=== PATIENT | male | born 1965 | race Caucasian/White ===

== ENCOUNTER 2023-05-06 00:24 | Emergency (ER) | payer BC ==
[2023-05-06 00:56] LABS: #Basophils 0.1 thou/uL (0.0-0.2); #Eosinphils 0.1 thou/uL (0.0-0.7); #Monocytes 0.8 thou/uL (0.11-0.59); #Neutrophils 4.1 thou/uL (1.40-6.50); %Basophils 0.8 % (0.0-1.0); %Eosinophils 1.9 % (0.0-10.0); %Lymphocytes 29.4 % (21.0-51.0); %Monocytes 10.4 % (0.0-10.0); %Neutrophils 57.2 % (42.0-75.0); Hematocrit 41.6 % (42.0-52.0); Hemoglobin 14.2 g/dL (14.0-18.0); Mean Corpuscular HGB CONC 34.1 g/dL (32.0-36.0); Mean Corpuscular Hemoglobin 30.9 pg (27.0-31.0); Mean Corpuscular Volume 90.4 fl (78.0-98.0); Mean Platelet Volume 9.1 fL (7.4-10.4); Platelet Count 220 10x3/uL (130-400); RBC Distribution Width 13.2 % (11.5-14.5); White Blood Cell (WBC) Count 7.2 10x3/uL (4.8-10.8)
[2023-05-06 01:19] LABS: ALT (SGPT) 20 U/L (8-55); AST (SGOT) 21 U/L (5-34); Albumin 4.3 g/dL (3.5-5.0); Alkaline Phosphatase 57 U/L (40-110); Anion Gap 19 mmol/L (10-20); BUN (Urea Nitrogen) 23 mg/dL (8.4-25.7); Bilirubin, Total 0.5 mg/dL (0.2-1.2); Calc. Creatinine Clearance 0 mL/min (70-130); Calcium 9.5 mg/dL (7.8-10.44); Carbon Dioxide 19 mmol/L (22-29); Chloride 102 mmol/L (98-107); Estimated GFR 62; Globulin 2.9 g/dL (2.4-3.5); Glucose 310 mg/dL (70-105); Lipase 62 U/L (8-78); Potassium 4.3 mmol/L (3.5-5.1); Protein, Total 7.2 g/dL (6.0-8.3); Sodium 136 mmol/L (136-145)
[2023-05-06 01:34] LABS: Bacteria/HPF None Seen HPF (None Seen); Bilirubin Negative (Negative); Blood, Urine 3+ (Negative); CAUTI Indications for Culture Pelvic or flank pain; Clarity Clear (Clear); Glucose, Urine (Dipstick) Greater than 1000 mg/dL (Negative); Ketone, Urine 60 mg/dL (Negative); Leukocyte Negative Leu/uL (Negative); Nitrite Negative (Negative); Protein, Urine (Dipstick) 10 mg/dL (Neg-Trace); RBC/HPF Greater than 50 HPF (0-3); Specific Gravity, Urine 1.029 (1.002-1.036); Squamous Epithelial None Seen HPF (0-3); Urobilinogen Normal mg/dL (Less than 2); WBC/HPF 0-3 HPF (0-3)
[2023-05-06] MEDS ORDERED: Ketorolac Tromethamine 30 MG/ML VIAL ONE (01:34)
[2023-05-06] MEDS ORDERED: Morphine 4 MG/ML VIAL ONE (01:34)
[2023-05-06 01:35] LABS: Urine Culture Reflex No No
[2023-05-06] MEDS ORDERED: Ondansetron PF 4 MG/2 ML Vial ONE (01:35)
[2023-05-06] MEDS ORDERED: Iopamidol 370 76% 100 ML VIAL ONE (13:23)
== END 2023-05-06 05:51 | disposition home or self-care (01) ==
LOC: ERS 00:24
DX: N28.89 Other specified disorders of kidney and ureter (principal)
CPT/HCPCS: 36415; 74177; 80053; 81001; 83690; 85025; 96374; 96375; J1885; J2270; J2405; Q9967

== ENCOUNTER 2023-05-17 14:26 | Outpatient (CLI) | payer BC ==
[~2023-05-17 14:26] MED LIST: Iopamidol 370 76% 100 ML VIAL ONE
== END 2023-05-17 14:27 | disposition home or self-care (01) ==
LOC: BICCT 14:26
PROVIDERS: ATTEND Urology
DX: E27.8 Other specified disorders of adrenal gland (principal); N28.89 Other specified disorders of kidney and ureter; C64.1 Malignant neoplasm of right kidney, except renal pelvis
CPT/HCPCS: 71260; 74178; Q9967

== ENCOUNTER → 2023-05-20 | Day surgery (SDC) | payer BC ==
[~2023-05-20] MED LIST changes: +FLU VACC QS2023-24(6MOS UP)/PF 60 MCG/0.5 ML SYRINGE IM ONE; -Iopamidol 370 76% 100 ML VIAL ONE
[2023-05-20 09:05] LABS: #Eosinphils 0.2 thou/uL (0.0-0.7); #Monocytes 0.7 thou/uL (0.11-0.59); #Neutrophils 6.6 thou/uL (1.40-6.50); %Basophils 0.4 % (0.0-1.0); %Eosinophils 1.7 % (0.0-10.0); %Lymphocytes 16.1 % (21.0-51.0); %Monocytes 7.7 % (0.0-10.0); %Neutrophils 72.5 % (42.0-75.0); Hematocrit 39.4 % (42.0-52.0); Hemoglobin 13.1 g/dL (14.0-18.0); Mean Corpuscular HGB CONC 33.2 g/dL (32.0-36.0); Mean Corpuscular Hemoglobin 30.5 pg (27.0-31.0); Mean Corpuscular Volume 91.6 fl (78.0-98.0); Mean Platelet Volume 8.5 fL (7.4-10.4); Platelet Count 381 10x3/uL (130-400); RBC Distribution Width 12.9 % (11.5-14.5); White Blood Cell (WBC) Count 9.2 10x3/uL (4.8-10.8)
[2023-05-20 09:23] VITALS: BP 115/78; TEMP 98.7
[2023-05-20 09:30] LABS: INR-International Normal Ratio 1.1; PTT 32.4 sec (22.9-36.1); Prothrombin Time 14.6 sec (12.0-14.7)
== END ==
LOC: CT 08:28
PROVIDERS: ATTEND Urology
PROC: 0T903ZX Drainage of Right Kidney, Percutaneous Approach, Diagnostic (ICD-10-PCS; principal; 2023-05-20)
DX: N28.89 Other specified disorders of kidney and ureter (principal)
CPT/HCPCS: 50200; 77012; 85025; 85610; 85730; 88305; 88333; 88334; 88341; 88342

== ENCOUNTER 2023-05-24 08:57 | Outpatient (CLI) | payer BC | END 2023-05-24 08:58 | disposition home or self-care (01) | LOC: NM 08:57 | PROVIDERS: ATTEND Urology | DX: N28.89 Other specified disorders of kidney and ureter (principal); E27.8 Other specified disorders of adrenal gland | CPT/HCPCS: 78306; A9503 ==

== ENCOUNTER 2023-08-01 14:22 | Emergency (ER) | payer BC ==
[2023-08-01 15:17] LABS: #Eosinphils 0.2 thou/uL (0.0-0.7); #Monocytes 1.4 thou/uL (0.11-0.59); #Neutrophils 9.2 thou/uL (1.40-6.50); %Basophils 0.3 % (0.0-1.0); %Eosinophils 1.6 % (0.0-10.0); %Lymphocytes 5.2 % (21.0-51.0); %Monocytes 11.8 % (0.0-10.0); %Neutrophils 79.9 % (42.0-75.0); Hematocrit 40.2 % (42.0-52.0); Hemoglobin 13.9 g/dL (14.0-18.0); Mean Corpuscular HGB CONC 34.6 g/dL (32.0-36.0); Mean Corpuscular Hemoglobin 31.6 pg (27.0-31.0); Mean Corpuscular Volume 91.4 fl (78.0-98.0); Mean Platelet Volume 8.2 fL (7.4-10.4); Platelet Count 257 10x3/uL (130-400); White Blood Cell (WBC) Count 11.6 10x3/uL (4.8-10.8)
[2023-08-01 15:53] LABS: Free T4 (Free Thyroxine) 0.97 ng/dL (0.70-1.48); Thyroid Stimulating Hormone 20.8255 uIU/mL (0.35-4.94)
[2023-08-01 16:06] LABS: ALT (SGPT) 25 U/L (8-55); AST (SGOT) 25 U/L (5-34); Albumin 3.4 g/dL (3.5-5.0); Alkaline Phosphatase 53 U/L (40-110); Anion Gap 18 mmol/L (10-20); BUN (Urea Nitrogen) 12 mg/dL (8.4-25.7); Bilirubin, Total 0.4 mg/dL (0.2-1.2); Calc. Creatinine Clearance 0 mL/min (70-130); Calcium 8.6 mg/dL (7.8-10.44); Carbon Dioxide 19 mmol/L (22-29); Chloride 99 mmol/L (98-107); Estimated GFR 84; Globulin 2.5 g/dL (2.4-3.5); Glucose 255 mg/dL (70-105); Potassium 4.1 mmol/L (3.5-5.1); Protein, Total 5.9 g/dL (6.0-8.3); Sodium 132 mmol/L (136-145)
[2023-08-01] MEDS ORDERED: Dexamethasone 10 MG/ML VIAL ONE (16:07)
[2023-08-01 16:12] LABS: Troponin I Less than 0.010 ng/mL (< 0.028)
[2023-08-01 16:59] LABS: Bacteria/HPF None Seen HPF (None Seen); Bilirubin Negative (Negative); Blood, Urine Negative (Negative); CAUTI Indications for Culture Dysuria,urgency,freq; Glucose, Urine (Dipstick) 300 mg/dL (Negative); Ketone, Urine 20 mg/dL (Negative); Leukocyte Negative Leu/uL (Negative); Nitrite Negative (Negative); Protein, Urine (Dipstick) 20 mg/dL (Neg-Trace); Specific Gravity, Urine 1.026 (1.002-1.036); Squamous Epithelial None Seen HPF (0-3); Urobilinogen Normal mg/dL (Less than 2); pH, Urine 5.5 (5.0-9.0)
[2023-08-01 17:08] LABS: Influenza A by NAA Not Detected (NotDetected); Influenza B by NAA Not Detected (NotDetected); SARS-CoV-2 NAA Rapid Test Not Detected (NotDetected)
[2023-08-01 17:18] LABS: Clarity Hazy (Clear); RBC/HPF 0-3 HPF (0-3)
[2023-08-01 17:19] LABS: Urine Culture Reflex No No
== END 2023-08-01 18:00 | disposition home or self-care (01) ==
LOC: ERS 14:22
DX: E03.9 Hypothyroidism, unspecified (principal); E11.9 Type 2 diabetes mellitus without complications; Z55.6 Problems related to health literacy; Z75.3 Unavailability and inaccessibility of health-care facilities; Z87.891 Personal history of nicotine dependence; Z79.899 Other long term (current) drug therapy
CPT/HCPCS: 36415; 71045; 80053; 81001; 83880; 84439; 84443; 84481; 84484; 85025; 93005; 96361; 96374; J1100

== ENCOUNTER 2023-08-09 14:17 | Inpatient (IN) | payer BC ==
[~2023-08-09 14:17] MED LIST changes: -FLU VACC QS2023-24(6MOS UP)/PF 60 MCG/0.5 ML SYRINGE IM ONE; +Iopamidol-370 76% 500 ML MDV (1 ML CHARGE) ONE
[2023-08-09 15:51] LABS: Hematocrit 44.1 % (42.0-52.0); Hemoglobin 15.4 g/dL (14.0-18.0); Manual Diff?? YES; Mean Corpuscular HGB CONC 34.9 g/dL (32.0-36.0); Mean Corpuscular Hemoglobin 30.8 pg (27.0-31.0); Mean Corpuscular Volume 88.2 fl (78.0-98.0); Mean Platelet Volume 8.8 fL (7.4-10.4); Platelet Count 345 10x3/uL (130-400); RBC Distribution Width 15.4 % (11.5-14.5); White Blood Cell (WBC) Count 11.6 10x3/uL (4.8-10.8)
[2023-08-09 15:52] LABS: Delete Auto Diff?? YES
[2023-08-09 16:07] LABS: Troponin I Less than 0.010 ng/mL (< 0.028)
[2023-08-09 16:14] LABS: ALT (SGPT) 18 U/L (8-55); AST (SGOT) 36 U/L (5-34); Albumin 3.2 g/dL (3.5-5.0); Alkaline Phosphatase 57 U/L (40-110); Anion Gap 14 mmol/L (10-20); BUN (Urea Nitrogen) 21 mg/dL (8.4-25.7); Bilirubin, Total 0.7 mg/dL (0.2-1.2); Calc. Creatinine Clearance 0 mL/min (70-130); Calcium 8.5 mg/dL (7.8-10.44); Carbon Dioxide 19 mmol/L (22-29); Chloride 102 mmol/L (98-107); Estimated GFR 95; Globulin 2.5 g/dL (2.4-3.5); Glucose 183 mg/dL (70-105); Lipase 22 U/L (8-78); Potassium 2.8 mmol/L (3.5-5.1); Protein, Total 5.7 g/dL (6.0-8.3); Sodium 132 mmol/L (136-145)
[2023-08-09 16:16] LABS: Magnesium 1.9 mg/dL (1.6-2.6)
[2023-08-09 16:23] LABS: Free T4 (Free Thyroxine) 0.52 ng/dL (0.70-1.48)
[2023-08-09 16:27] LABS: Anisocytosis SLIGHT = 6-15 cells HPF (0-5); Band 59 % (5-11); Burr Cells SLIGHT = 2-5 cells HPF (0-1); CellaVision Operator ID LAB.MJL; Lymphocytes 1 % (21-51); Macrocytosis SLIGHT = 6-15 cells HPF (0-5); Metamyelocyte 6 % (0-0); Monocytes 12 % (0-10); Neutrophil 22 % (42-75); Ovalocytes SLIGHT = 2-5 cells HPF (0-1); Platelet Adequacy Comment Platelets Normal; Poikilocytosis SLIGHT = 6-15 cells HPF (0-5); Reactive Lymphocytes 1 % (0-10); Reflex for Review?? YES; Total Cell Count 107; Toxic Granulation SLIGHT; Vacuoles SLIGHT
[2023-08-09] MEDS ORDERED: Potassium Chloride 20 MEQ TAB ONE (16:35)
[2023-08-09] MEDS ORDERED: Ondansetron PF 4 MG/2 ML Vial ONE ×2 (16:50→21:53)
[2023-08-09 16:57] LABS: Bacteria/HPF None Seen HPF (None Seen); Bilirubin Negative (Negative); Blood, Urine Negative (Negative); CAUTI Indications for Culture Immunosuppressed; Clarity Clear (Clear); Glucose, Urine (Dipstick) Normal (Negative); Ketone, Urine Negative (Negative); Leukocyte Negative Leu/uL (Negative); Nitrite Negative (Negative); Protein, Urine (Dipstick) 70 mg/dL (Neg-Trace); RBC/HPF 0-3 HPF (0-3); Specific Gravity, Urine 1.032 (1.002-1.036); Squamous Epithelial None Seen HPF (0-3); Urobilinogen Normal mg/dL (Less than 2); WBC/HPF 0-3 HPF (0-3); pH, Urine 5.5 (5.0-9.0)
[2023-08-09 17:00] LABS: Urine Culture Reflex Yes Yes
[2023-08-09] MEDS: Potassium Chloride 10 MEQ in Premix 1 BAG IVPB SCH (17:00)
[2023-08-09 17:07] LABS: Phosphorus 3.4 mg/dL (2.3-4.7); Uric Acid 5.8 mg/dL (3.5-7.2)
[2023-08-09] MEDS ORDERED: Ondansetron PF 4 MG/2 ML Vial IVP PRN (21:43)
[2023-08-09] MEDS ORDERED: Piperacillin/Tazobactam 4.5 GM VIAL ONE (21:49)
[2023-08-09] MEDS ORDERED: Sodium Chloride 0.9% 100 ML ONE (21:51)
[2023-08-09] MEDS ORDERED: Dextrose 50% Abboject 50 ML SYRINGE SLOW IVP PRN (22:13)
[2023-08-09] MEDS ORDERED: Dextrose 5% in Water 1,000 ML IV PRN (22:13)
[2023-08-09] MEDS ORDERED: Glucagon 1 MG/ML KIT IM PRN (22:13)
[2023-08-09] MEDS: Sodium Chloride 0.9% 1,000 ML IV SCH (23:04)
[2023-08-10] MEDS: Piperacillin/Tazobactam 3.375 GM in Sodium Chloride 0.9% 100 ML IVPB SCH (01:16)
[2023-08-10 04:53] LABS: Campy jejuni + coli by PCR Negative (Negative); STEC Shiga Toxin 1+2 Negative (Negative); Salmonella spp. by PCR Negative (Negative); Shigella spp + EIEC by PCR Negative (Negative)
[2023-08-10 07:27] LABS: Hematocrit 41.2 % (42.0-52.0); Hemoglobin 14.1 g/dL (14.0-18.0); Manual Diff?? YES; Mean Corpuscular HGB CONC 34.2 g/dL (32.0-36.0); Mean Corpuscular Hemoglobin 30.8 pg (27.0-31.0); Mean Platelet Volume 8.7 fL (7.4-10.4); Platelet Count 314 10x3/uL (130-400); RBC Distribution Width 15.4 % (11.5-14.5); Red Blood Cell (RBC) Count 4.58 mill/uL (4.70-6.10); White Blood Cell (WBC) Count 13.5 10x3/uL (4.8-10.8)
[2023-08-10 07:30] LABS: Delete Auto Diff?? YES
[2023-08-10 08:05] LABS: Band 32 % (5-11); Burr Cells SLIGHT = 2-5 cells HPF (0-1); CellaVision Operator ID LAB.KW3; Large Platelets 1.9 % (0-5); Lymphocytes 4 % (21-51); Monocytes 8 % (0-10); Neutrophil 56 % (42-75); Platelet Adequacy Comment Platelets Normal; Poikilocytosis MODERATE=16-30 cells HPF (0-5); Polychromasia SLIGHT = 2-3 cells HPF (0-2); Schistocytes SLIGHT = 2-5 cells HPF (0-1); Total Cell Count 103
[2023-08-10 08:07] LABS: ALT (SGPT) 20 U/L (8-55); AST (SGOT) 40 U/L (5-34); Albumin 2.9 g/dL (3.5-5.0); Alkaline Phosphatase 48 U/L (40-110); Anion Gap 13 mmol/L (10-20); BUN (Urea Nitrogen) 18 mg/dL (8.4-25.7); Bilirubin, Total 0.7 mg/dL (0.2-1.2); Calc. Creatinine Clearance 0 mL/min (70-130); Calcium 8.1 mg/dL (7.8-10.44); Carbon Dioxide 18 mmol/L (22-29); Chloride 103 mmol/L (98-107); Estimated GFR 98; Globulin 2.2 g/dL (2.4-3.5); Glucose 79 mg/dL (70-105); Potassium 2.7 mmol/L (3.5-5.1); Protein, Total 5.1 g/dL (6.0-8.3); Sodium 131 mmol/L (136-145)
[2023-08-10] MEDS: Famotidine/PF 20 mg/2ml Vial SLOW IVP SCH (09:44)
[2023-08-10] MEDS: Heparin 5,000 UNITS/ML VIAL SC SCH (09:45)
[2023-08-10 12:24] LABS: Magnesium 1.8 mg/dL (1.6-2.6); Phosphorus 3.1 mg/dL (2.3-4.7)
[2023-08-10] MEDS: Potassium Chloride 20 MEQ TAB PO SCH (13:02)
[2023-08-10] MEDS: Potassium Chloride 20 MEQ in Premix 1 BAG IVPB SCH (13:02)
[2023-08-10 15:22] VITALS: BMI 19.2
[2023-08-10 19:59] LABS: Anion Gap 12 mmol/L (10-20); BUN (Urea Nitrogen) 14 mg/dL (8.4-25.7); Calc. Creatinine Clearance 70 mL/min (70-130); Calcium 8.3 mg/dL (7.8-10.44); Carbon Dioxide 18 mmol/L (22-29); Chloride 103 mmol/L (98-107); Estimated GFR 83; Glucose 143 mg/dL (70-105); Potassium 2.9 mmol/L (3.5-5.1); Sodium 130 mmol/L (136-145)
[2023-08-10] MEDS: Loperamide HCl 2 MG CAP PO SCH (20:17)
[2023-08-11 06:25] LABS: Hematocrit 41.6 % (42.0-52.0); Hemoglobin 13.9 g/dL (14.0-18.0); Manual Diff?? YES; Mean Corpuscular HGB CONC 33.4 g/dL (32.0-36.0); Mean Corpuscular Hemoglobin 30.8 pg (27.0-31.0); Mean Platelet Volume 8.5 fL (7.4-10.4); Platelet Count 277 10x3/uL (130-400); RBC Distribution Width 15.5 % (11.5-14.5); Red Blood Cell (RBC) Count 4.52 mill/uL (4.70-6.10); White Blood Cell (WBC) Count 11.7 10x3/uL (4.8-10.8)
[2023-08-11 06:28] LABS: Delete Auto Diff?? YES
[2023-08-11 06:45] LABS: Albumin 2.8 g/dL (3.5-5.0); Anion Gap 14 mmol/L (10-20); BUN (Urea Nitrogen) 13 mg/dL (8.4-25.7); BUN/Creatinine Ratio 15.29; Calc. Creatinine Clearance 85 mL/min (70-130); Carbon Dioxide 14 mmol/L (22-29); Chloride 106 mmol/L (98-107); Estimated GFR 100; Glucose 158 mg/dL (70-105); Phosphorus 3.2 mg/dL (2.3-4.7); Sodium 131 mmol/L (136-145)
[2023-08-11 06:47] LABS: Potassium 2.6 mmol/L (3.5-5.1)
[2023-08-11 07:00] LABS: Anisocytosis SLIGHT = 6-15 cells HPF (0-5); Band 34 % (5-11); CellaVision Operator ID lab.sh2; Lymphocytes 1 % (21-51); Macrocytosis SLIGHT = 6-15 cells HPF (0-5); Monocytes 12 % (0-10); Neutrophil 54 % (42-75); Ovalocytes SLIGHT = 2-5 cells HPF (0-1); Platelet Adequacy Comment Platelets Normal; Polychromasia SLIGHT = 2-3 cells HPF (0-2); Smudge Cells 12.9 %; Total Cell Count 101
[2023-08-11] MEDS ORDERED: Electrolyte Replacement Protocol 1 EACH FS SCH (07:00)
[2023-08-11 07:58] LABS: Magnesium 1.9 mg/dL (1.6-2.6)
[2023-08-11] MEDS ORDERED: Potassium Chloride 20 MEQ TAB PO SCH (09:00)
[2023-08-11] MEDS: Potassium Bicarbonate/Cit Ac 20 MEQ TAB PO SCH (09:37)
[2023-08-11] MEDS: Magnesium 2 GM/50 ML(in water) 2 GM in Premix 1 BAG IVPB SCH (09:37)
[2023-08-11] MEDS: predniSONE 20 MG TAB PO SCH (15:05)
[2023-08-11 17:20] LABS: Anion Gap 16 mmol/L (10-20); BUN (Urea Nitrogen) 11 mg/dL (8.4-25.7); Calc. Creatinine Clearance 70 mL/min (70-130); Calcium 7.8 mg/dL (7.8-10.44); Carbon Dioxide 14 mmol/L (22-29); Chloride 104 mmol/L (98-107); Estimated GFR 84; Glucose 214 mg/dL (70-105); Sodium 131 mmol/L (136-145)
[2023-08-11] MEDS: HumaLOG 300 UNITS/3 ML VIAL SC PRN (18:01)
[2023-08-12] MEDS: Levothyroxine Sodium 125 MCG TAB PO SCH (05:28)
[2023-08-12 05:38] LABS: Anion Gap 14 mmol/L (10-20); BUN (Urea Nitrogen) 12 mg/dL (8.4-25.7); Calc. Creatinine Clearance 81 mL/min (70-130); Calcium 8.4 mg/dL (7.8-10.44); Carbon Dioxide 16 mmol/L (22-29); Chloride 104 mmol/L (98-107); Estimated GFR 99; Glucose 161 mg/dL (70-105); Magnesium 2.3 mg/dL (1.6-2.6); Potassium 3.9 mmol/L (3.5-5.1); Sodium 130 mmol/L (136-145)
[2023-08-12] MEDS: predniSONE 20 MG TAB PO SCH (08:02)
[2023-08-12] MEDS: Temazepam 15 MG CAP PO PRN (20:26)
[2023-08-13 06:51] LABS: Hematocrit 45.2 % (42.0-52.0); Hemoglobin 15.2 g/dL (14.0-18.0); Manual Diff?? YES; Mean Corpuscular HGB CONC 33.6 g/dL (32.0-36.0); Mean Corpuscular Hemoglobin 30.6 pg (27.0-31.0); Mean Corpuscular Volume 91.1 fl (78.0-98.0); Mean Platelet Volume 8.5 fL (7.4-10.4); Platelet Count 274 10x3/uL (130-400); RBC Distribution Width 15.4 % (11.5-14.5); Red Blood Cell (RBC) Count 4.96 mill/uL (4.70-6.10); White Blood Cell (WBC) Count 13.2 10x3/uL (4.8-10.8)
[2023-08-13 06:56] LABS: Delete Auto Diff?? YES
[2023-08-13 07:11] LABS: Anion Gap 14 mmol/L (10-20); BUN (Urea Nitrogen) 16 mg/dL (8.4-25.7); Calc. Creatinine Clearance 93 mL/min (70-130); Calcium 8.4 mg/dL (7.8-10.44); Carbon Dioxide 15 mmol/L (22-29); Chloride 103 mmol/L (98-107); Estimated GFR 103; Glucose 131 mg/dL (70-105); Magnesium 2.4 mg/dL (1.6-2.6); Potassium 4.4 mmol/L (3.5-5.1); Sodium 128 mmol/L (136-145)
[2023-08-13 08:55] LABS: Band 9 % (5-11); Lymphocytes 3 % (21-51); Neutrophil 88 % (42-75)
[2023-08-13 08:56] LABS: Elliptocytes SLIGHT = 2-5 cells (100X) (0-1/hpf); Ovalocytes MODERATE= 6-15 cells (100X) (0-1/hpf)
[2023-08-13 08:57] LABS: Crenated RBC MODERATE= 6-15 cells (100X) (None Seen); Platelet Adequacy Comment Appears Adequate
[2023-08-13] MEDS ORDERED: PROPOFOL 40 ML ONE (11:34)
[2023-08-13] MEDS: Sodium Chloride 0.9% 1,000 ML IV SCH (18:49)
[2023-08-13] MEDS: Melatonin 3 MG TAB PO PRN (20:56)
[2023-08-13] MEDS: HumaLOG 300 UNITS/3 ML VIAL SC PRN (21:04)
[2023-08-14] MEDS: Levothyroxine 150 MCG TAB PO SCH (06:32)
[2023-08-14] MEDS: methylPREDNISolone Sod Succ/PF 125 MG/2 ML VIAL IVP SCH (15:00)
[2023-08-16 04:43] LABS: Hematocrit 34.3 % (42.0-52.0); Hemoglobin 11.8 g/dL (14.0-18.0); Manual Diff?? YES; Mean Corpuscular HGB CONC 34.4 g/dL (32.0-36.0); Mean Corpuscular Hemoglobin 31.1 pg (27.0-31.0); Mean Corpuscular Volume 90.5 fl (78.0-98.0); Mean Platelet Volume 8.5 fL (7.4-10.4); Platelet Count 266 10x3/uL (130-400); RBC Distribution Width 15.5 % (11.5-14.5); Red Blood Cell (RBC) Count 3.79 mill/uL (4.70-6.10); White Blood Cell (WBC) Count 10.5 10x3/uL (4.8-10.8)
[2023-08-16 05:26] LABS: Anion Gap 10 mmol/L (10-20); BUN (Urea Nitrogen) 13 mg/dL (8.4-25.7); Calc. Creatinine Clearance 127 mL/min (70-130); Calcium 7.7 mg/dL (7.8-10.44); Carbon Dioxide 22 mmol/L (22-29); Chloride 104 mmol/L (98-107); Estimated GFR 113; Glucose 160 mg/dL (70-105); Potassium 3.2 mmol/L (3.5-5.1); Sodium 133 mmol/L (136-145)
[2023-08-16 06:09] LABS: Delete Auto Diff?? YES
[2023-08-16 06:44] LABS: Anisocytosis SLIGHT = 6-15 cells HPF (0-5); Band 18 % (5-11); Burr Cells MODERATE= 6-15 cells HPF (0-1); CellaVision Operator ID LAB.JMM; Macrocytosis SLIGHT = 6-15 cells HPF (0-5); Neutrophil 82 % (42-75); Platelet Adequacy Comment Platelets Normal; Poikilocytosis MODERATE=16-30 cells HPF (0-5); Polychromasia SLIGHT = 2-3 cells HPF (0-2); Total Cell Count 100
[2023-08-16] MEDS: Potassium Chloride 20 MEQ TAB PO SCH ×2 (09:35→16:53)
[2023-08-17 04:45] LABS: Anion Gap 12 mmol/L (10-20); BUN (Urea Nitrogen) 13 mg/dL (8.4-25.7); Calc. Creatinine Clearance 108 mL/min (70-130); Calcium 7.3 mg/dL (7.8-10.44); Carbon Dioxide 22 mmol/L (22-29); Chloride 100 mmol/L (98-107); Estimated GFR 108; Glucose 207 mg/dL (70-105); Potassium 3.1 mmol/L (3.5-5.1); Sodium 131 mmol/L (136-145)
[2023-08-17 08:29] VITALS: BP 118/78; TEMP 97.9
== END 2023-08-17 11:11 | disposition home or self-care (01) | DRG 345 ==
LOC: ERS 14:17 → T4-B 21:34
PROVIDERS: ADMIT Hospitalist; ATTEND Family Medicine
PROC: 0DBG8ZX Excision of Left Large Intestine, Via Natural or Artificial Opening Endoscopic, Diagnostic (ICD-10-PCS; principal; 2023-08-13)
PROC: 0DBF8ZX Excision of Right Large Intestine, Via Natural or Artificial Opening Endoscopic, Diagnostic (ICD-10-PCS; 2023-08-13)
PROC: 0D9E8ZZ Drainage of Large Intestine, Via Natural or Artificial Opening Endoscopic (ICD-10-PCS; 2023-08-13)
DX: K52.1 Toxic gastroenteritis and colitis (principal); C64.1 Malignant neoplasm of right kidney, except renal pelvis; C64.9 Malignant neoplasm of unspecified kidney, except renal pelvis; C78.00 Secondary malignant neoplasm of unspecified lung; R64 Cachexia; Z68.1 Body mass index [BMI] 19.9 or less, adult; K56.7 Ileus, unspecified; E87.1 Hypo-osmolality and hyponatremia; E46 Unspecified protein-calorie malnutrition; E11.9 Type 2 diabetes mellitus without complications; E87.6 Hypokalemia; K63.89 Other specified diseases of intestine; T50.995A Adverse effect of other drugs, medicaments and biological substances, initial encounter; E86.0 Dehydration; E03.9 Hypothyroidism, unspecified; N40.0 Benign prostatic hyperplasia without lower urinary tract symptoms; K59.01 Slow transit constipation; Z79.4 Long term (current) use of insulin; Z79.899 Other long term (current) drug therapy; Z87.891 Personal history of nicotine dependence; R59.0 Localized enlarged lymph nodes
CPT/HCPCS: 36415; 36416; 71045; 71046; 71260; 74019; 74177; 80048; 80053; 80069; 81001; 82024; 82248; 82533; 83605; 83615; 83690; 83735; 84100; 84439; 84443; 84481; 84484; 84550; 85025; 85060; 87040; 87086; 87324; 87449; 87505; 88305; 93005; 96374; 96375; 96376; J1644; J1815; J2405; J2543; J2704; J2930; J3475; J3480; J3490; J7050; J7512; Q9967; S0028

== ENCOUNTER 2023-10-14 08:23 | Outpatient (CLI) | payer BC ==
[2023-10-14] MEDS ORDERED: Iopamidol 370 76% 100 ML VIAL ONE (11:54)
== END 2023-10-14 08:24 | disposition home or self-care (01) ==
LOC: BICCT 08:23
PROVIDERS: ATTEND Internal Medicine
DX: C64.1 Malignant neoplasm of right kidney, except renal pelvis (principal); I26.99 Other pulmonary embolism without acute cor pulmonale; R91.1 Solitary pulmonary nodule; N28.89 Other specified disorders of kidney and ureter; R59.0 Localized enlarged lymph nodes; E27.8 Other specified disorders of adrenal gland
CPT/HCPCS: 71260; 74177; Q9967

== ENCOUNTER 2024-01-02 08:31 | Outpatient (CLI) | payer BC ==
[2024-01-02] MEDS ORDERED: Iopamidol 370 76% 100 ML VIAL ONE (10:39)
== END 2024-01-02 08:32 | disposition home or self-care (01) ==
LOC: CT 08:31
PROVIDERS: ATTEND Internal Medicine
DX: C64.9 Malignant neoplasm of unspecified kidney, except renal pelvis (principal); N28.89 Other specified disorders of kidney and ureter; K76.9 Liver disease, unspecified; I31.39 Other pericardial effusion (noninflammatory); E27.8 Other specified disorders of adrenal gland; R91.1 Solitary pulmonary nodule; N28.0 Ischemia and infarction of kidney
CPT/HCPCS: 71260; 74177; Q9967

== ENCOUNTER 2024-03-13 14:23 | Outpatient (CLI) | payer BC ==
[~2024-03-13 14:23] MED LIST changes: +Iopamidol 370 76% 100 ML VIAL ONE; -Iopamidol-370 76% 500 ML MDV (1 ML CHARGE) ONE
== END 2024-03-13 14:24 | disposition home or self-care (01) ==
LOC: CT 14:23
PROVIDERS: ATTEND Internal Medicine
DX: C64.1 Malignant neoplasm of right kidney, except renal pelvis (principal); E27.8 Other specified disorders of adrenal gland; R59.0 Localized enlarged lymph nodes; K86.89 Other specified diseases of pancreas; I31.39 Other pericardial effusion (noninflammatory); K63.89 Other specified diseases of intestine; N28.89 Other specified disorders of kidney and ureter
CPT/HCPCS: 36415; 71260; 74177; 82565; Q9967

== ENCOUNTER 2024-04-06 09:21 | Outpatient (CLI) | payer BC ==
[2024-04-06] MEDS ORDERED: Magnevist 469MG/ML 20 ML VIAL ONE (15:34)
== END 2024-04-06 09:22 | disposition home or self-care (01) ==
LOC: MRI 09:21
PROVIDERS: ATTEND Internal Medicine
DX: C64.1 Malignant neoplasm of right kidney, except renal pelvis (principal); R93.5 Abnormal findings on diagnostic imaging of other abdominal regions, including retroperitoneum; K86.89 Other specified diseases of pancreas; N28.89 Other specified disorders of kidney and ureter
CPT/HCPCS: 74183; 76376

== ENCOUNTER 2024-07-18 08:43 | Outpatient (CLI) | payer BC ==
[2024-07-18] MEDS ORDERED: Iopamidol 370 76% 100 ML VIAL ONE (09:39)
== END 2024-07-18 08:44 | disposition home or self-care (01) ==
LOC: CT 08:43
PROVIDERS: ATTEND Internal Medicine
DX: C64.1 Malignant neoplasm of right kidney, except renal pelvis (principal); D50.8 Other iron deficiency anemias; K86.89 Other specified diseases of pancreas; K76.89 Other specified diseases of liver; R59.0 Localized enlarged lymph nodes; I31.39 Other pericardial effusion (noninflammatory)
CPT/HCPCS: 71260; 74177

== ENCOUNTER 2024-07-27 14:17 | Outpatient (CLI) | payer BC | END 2024-07-27 14:18 | disposition home or self-care (01) | LOC: BICRAD 14:17 | PROVIDERS: ATTEND Family Medicine | DX: R07.81 Pleurodynia (principal) | CPT/HCPCS: 71046 ==

== ENCOUNTER 2025-01-16 08:49 | Outpatient (CLI) | payer BC ==
[2025-01-16 09:17] LABS: Estimated GFR - POC 97.0
[2025-01-16] MEDS ORDERED: Iopamidol 370 76% 100 ML VIAL ONE (15:22)
== END 2025-01-16 08:50 | disposition home or self-care (01) ==
LOC: CT 08:49
PROVIDERS: ATTEND Internal Medicine
DX: C64.1 Malignant neoplasm of right kidney, except renal pelvis (principal); D50.8 Other iron deficiency anemias; E27.9 Disorder of adrenal gland, unspecified; K86.89 Other specified diseases of pancreas; N28.89 Other specified disorders of kidney and ureter
CPT/HCPCS: 36415; 71260; 74177; 82565; Q9967

== ENCOUNTER 2025-04-10 08:01 | Outpatient (CLI) | payer BC ==
[2025-04-10] MEDS ORDERED: Iopamidol 370 76% 100 ML VIAL ONE (09:24)
== END 2025-04-10 08:02 | disposition home or self-care (01) ==
LOC: CT 08:01
PROVIDERS: ATTEND Internal Medicine
DX: C64.1 Malignant neoplasm of right kidney, except renal pelvis (principal); D50.8 Other iron deficiency anemias; N28.89 Other specified disorders of kidney and ureter; K86.89 Other specified diseases of pancreas
CPT/HCPCS: 71260; 74177; Q9967